=== PATIENT | male | born 1970 | race Caucasian/White ===

== ENCOUNTER 2019-07-10 07:20 | Emergency (ER) | payer OTHER ==
[2019-07-10 07:42] VITALS: BP 161/94; PULSE 65; TEMP 97.7; BMI 27.4
[2019-07-10] MEDS ORDERED: CLINDAMYCIN 600MG PREMIX IVPB 600 MG/50 ML BAG IVPB ONE (07:51)
[2019-07-10] MEDS ORDERED: KETOROLAC TROMETHAMINE 30 MG/1 ML VIAL IVPUSH ONE (07:51)
[2019-07-10] MEDS ORDERED: CLINDAMYCIN HCL 150 MG CAPSULE (FP) PO ONE (08:01)
[2019-07-10] MEDS ORDERED: AMOX TR/POT CLAV 875MG/125MG TABLETS (FP) PO ONE (08:01)
[2019-07-10] MEDS ORDERED: AMOX TR/POT CLAV 875MG/125MG TABLETS (FP) ONE (08:06)
[2019-07-10] MEDS ORDERED: CLINDAMYCIN HCL 150 MG CAPSULE (FP) ONE (08:06)
--- NOTE | 2019-07-10 08:20 | PDOC ---
History of Present Illness - General Chief Complaint: Abscess Boil Stated Complaint: BUMP IN NOSE Time Seen by Provider: 07/10/19 07:44 History Source: Patient, Spouse - History of Present Illness Timing/Duration: reports: other Location: reports: face Past History - Past Medical History Allergies/Adverse Reactions: Allergies Allergy/AdvReac Type Severity Reaction Status Date / Time No Known Allergies Allergy Verified 06/02/16 07:13 Home Medications: Ambulatory Orders Amoxicillin/Potassium Clav [Augmentin 875-125 Tablet] 1 each PO BID #13 tablet 07/10/19 Clindamycin [Cleocin -] 300 mg PO Q6HPO #27 capsule 07/10/19 Ibuprofen [Motrin -] 600 mg PO QID #28 tablet 07/10/19 Hypercholesterolemia: Yes - Psycho Social/Smoking Cessation Hx Smoking History: Current every day smoker Have you smoked in the past 12 months: Yes Number of Cigarettes Smoked Daily: 20 Information on smoking cessation initiated: No Hx Alcohol Use: No Drug/Substance Use Hx: No Substance Use Type: None Review of Systems - Review of Systems Constitutional: No: Chills, Fever, Malaise HEENTM: No: Eye Pain, Blurred Vision *Physical Exam - Vital Signs Last Vital Signs Temp Pulse Resp BP Pulse Ox 97.7 F 65 16 161/94 100 07/10/19 07:37 07/10/19 07:37 07/10/19 07:37 07/10/19 07:37 07/10/19 07:37 - Physical Exam General Appearance: Yes: Appropriately Dressed. No: Apparent Distress HEENT: positive: Normal Voice, Other (minimal induration proximal to R nasal alae w/ swelling/erythema extending to R infraorbital region, no vesicles/ blisters, R conjunc clear w/ no pain w/ EOM, no lesions intranasally, no dental ttp or swelling) Neck: positive: Supple Respiratory/Chest: negative: Respiratory Distress Integumentary: positive: Dry, Warm Neurologic: positive: Fully Oriented, Alert, Normal Mood/Affect Medical Decision Making - Medical Decision Making 07/10/19 08:22 48-year-old male, denies any past medical history, here with facial pain and swelling. Patient states several days ago noticed swelling to R nasal area and since then swelling has extended under his right eye. No pain inside the eye and no discharge or visual changes. Denies any facial trauma. No dental pain. No fever or chills. States he had a similar condition several months ago but not this severe, that resolved on its own. see exam Facial cellulitis involving infraorbital region No e/o preseptal cellulitis No systemic signs/sxs Stable and well naya here FS wnl Dose of clida and augmentin given in facility Dc w/ same and warm compressess To return for reassessment in 2 days Discharge - Discharge Information Problems reviewed: Yes Clinical Impression/Diagnosis: Facial cellulitis Condition: Stable Disposition: HOME - Additional Discharge Information Prescriptions: Amoxicillin/Potassium Clav [Augmentin 875-125 Tablet] 1 each PO BID #13 tablet Clindamycin [Cleocin -] 300 mg PO Q6HPO #27 capsule Ibuprofen [Motrin -] 600 mg PO QID #28 tablet - Follow up/Referral Referrals: Charan Olivares MD [Primary Care Provider] - - Patient Discharge Instructions Patient Printed Discharge Instructions: Cellulitis Additional Instructions: Usted fue tratado por celulitis facial. [place] antibiticos segn lo prescrito y tome Motrin segn sea necesario para el dolor. Tambin debe aplicar livier compresa tibia en el sitio afectado 3-4 veces al da. Si no puede ser atendido en la clnica en 2 garcia para livier nueva evaluacin, regrese a la yen de emergencias Print Language: CENTRAL AFRICAN - Post Discharge Activity Work/Back to School Note: Back to Work
== END 2019-07-10 08:26 | disposition home or self-care (01) ==
LOC: JER 07:20
DX: L03.211 Cellulitis of face (principal); F17.210 Nicotine dependence, cigarettes, uncomplicated
CPT/HCPCS: 82962; 99282-25